=== PATIENT | male | born 1955 | race Caucasian/White ===

== ENCOUNTER 2018-04-29 08:42 | Day surgery (SDC) | payer BC, OTHER ==
[2018-04-25 13:47] VITALS: BMI 41.9
[~2018-04-29 08:42] MED LIST: LACTATED RINGERS 1,000 ML IV SCH
[2018-04-29 09:22] VITALS: TEMP 98.4
[2018-04-29] MEDS ORDERED: LIDOCAINE 1% 20 ML VIAL (10MG/ML) FOR IV START INTRADERMA ONE (09:24)
[2018-04-29] MEDS ORDERED: LIDOCAINE 1% INJ 10MG/ML (20 ML MDV) ONE (10:19)
[2018-04-29] MEDS ORDERED: PROPOFOL 10 MG/ML 20 ML VIAL IV ONE (10:19)
--- NOTE | 2018-04-29 11:07 | P.PCN ---
Date of Procedure: 04/29/18 Procedure(s) Performed: Procedure: Total colonoscopy and polypectomy. Preoperative diagnosis: Screening for neoplasia. Postoperative diagnosis: 1. Sigmoid and rectal polyps snared but no large polyps or cancer. 2. Sigmoid diverticulosis with no evidence of acute diverticulitis or strictures. 3. Low-grade internal hemorrhoids without bleeding at the time of this exam. Preparation: HalfLytely prep. Sedation: Was provided by anesthesia. Brief clinical history: The patient is a 62-year-old male who is referred for this evaluation for screening for neoplasia age being his risk factor. He has no abdominal complaints, bleeding or anemia and there is no family history of colon cancer. This would be his first colonoscopy. Procedure: With the patient on his left lateral decubitus position and after informed consent and adequate sedation, the perianal area was inspected and it did not show any fissures or fistulas. There were no masses felt on digital rectal examination. The Olympus CFQ 160L video colonoscope was then inserted in the rectum in the usual fashion and advanced to the cecum. There were several diverticular orifices seen scattered in the sigmoid with no evidence of acute diverticulitis or strictures. There were 2 polyps noted, one in the rectum and one in the sigmoid, that were snared and retrieved by suction but there were no large polyps or cancer. I retroflexed the endoscope in the rectum before the endoscope was withdrawn. Low-grade internal hemorrhoids were noted with no evidence of bleeding. The patient tolerated the procedure well. Plan: The patient was reassured. Discussed dietary measures and local care for hemorrhoids. Will await pathology results and I anticipate repeating this exam in 3-5 years. He will follow up with you as planned. I will keep you updated on his progress.
[2018-04-29 11:22] VITALS: BP 126/79; PULSE 62
== END 2018-04-29 11:39 | disposition home or self-care (01) ==
LOC: ORWHC2ENDO 08:42
DX: Z12.11 Encounter for screening for malignant neoplasm of colon (principal); D12.5 Benign neoplasm of sigmoid colon; D12.8 Benign neoplasm of rectum; K57.30 Diverticulosis of large intestine without perforation or abscess without bleeding; K64.8 Other hemorrhoids; I10 Essential (primary) hypertension; M19.90 Unspecified osteoarthritis, unspecified site; Z79.899 Other long term (current) drug therapy; Z88.5 Allergy status to narcotic agent
CPT/HCPCS: 88305; 45385; J2001; J2704

== ENCOUNTER → 2019-07-07 | Outpatient (CLI) | payer MEDICARE ==
--- NOTE | 2019-07-07 22:36 | US ---
EXAMINATION TYPE: US carotid duplex BILAT DATE OF EXAM: 07/07/2019 COMPARISON: NONE CLINICAL HISTORY: 64-year-old male I10,E66.01,R42. Dizziness TECHNIQUE: Carotid duplex ultrasound examination. Indirect Doppler criteria is utilized. FINDINGS: EXAM MEASUREMENTS: RIGHT: Peak Systolic Velocity (PSV) cm/sec ----- Right CCA: 70 ----- Right ICA: 73.5 ----- Right ECA: 85.2 ICA/CCA ratio: 0.7 RIGHT: End Diastole cm/sec ----- Right CCA: 20 ----- Right ICA: 21.2 ----- Right ECA: 14 LEFT: Peak Systolic Velocity (PSV) cm/sec ----- Left CCA: 85.2 ----- Left ICA: 89.5 ----- Left ECA: 95.8 ICA/CCA ratio: 1.1 LEFT: End Diastole cm/sec ----- Left CCA: 22.7 ----- Left ICA: 19.8 ----- Left ECA: 17.6 VERTEBRALS (direction of flow): Right Vertebral: Antegrade Left Vertebral: Antegrade Rhythm: Normal [employer] notes: No significant stenosis seen IMPRESSION: No hemodynamically significant stenosis appreciated in either internal carotid artery. Criteria for Assigning % of Stenosis / Diameter reduction (Estimation based on the indirect measurements of the internal carotid artery velocities (ICA PSV). 1. Normal (no stenosis)=ICA PSV < 125 cm/s: ratio < 2.0: ICA EDV<40 cm/s. 2. Less than 50% stenosis=ICA PSV < 125 cm/s: ratio < 2.0: ICA EDV<40 cm/s. 3. 50 to 69% stenosis=ICA PSV of 125 to 230 cm/s: ration 2.0 ? 4.0: ICA EDV 40-100 cm/s. 4. Greater than 70% stenosis to near occlusion= ICA PSV > 230 cm/s: ratio > 4.0: ICA EDV > 100 cm/s. 5. Near occlusion= ICA PSV velocities may be low or undetectable: variable ratio and ICA EDV. 6. Total occlusion=unable to detect flow.
== END ==
LOC: RADUSWWP 13:37
PROVIDERS: ATTEND Family Medicine
DX: R42 Dizziness and giddiness (principal); E66.01 Morbid (severe) obesity due to excess calories; I10 Essential (primary) hypertension
CPT/HCPCS: 93880